=== PATIENT | female | born 1965 | race Two or more races ===

== ENCOUNTER 2018-02-01 12:47 | Emergency (ER) | payer MEDICAID ==
[~2018-02-01] VITALS: Ht 170.2 cm; Wt 81.6 kg
[2018-02-01 13:09] VITALS: BP 138/66
[2018-02-01] MEDS ORDERED: KETOROLAC TROMETH 60MG/2ML VIAL IM ONE (14:00)
== END 2018-02-01 14:30 | disposition home or self-care (01) ==
LOC: ER 12:47
DX: G89.29 Other chronic pain (principal); M54.5 Low back pain; M54.16 Radiculopathy, lumbar region
CPT/HCPCS: 96372; 99283; J1885

== ENCOUNTER 2018-12-30 21:02 | Emergency (ER) | payer MEDICAID ==
[~2018-12-30] VITALS: Ht 167.6 cm; Wt 81.6 kg
[2018-12-30 22:30] LABS: INR 0.88 (0.9-1.15); Partial Thromboplastin Time 25.5 sec (23.64-32.05); Prothrombin Time 9.6 sec (9.06-12.60)
[2018-12-30 22:32] LABS: Basophils # (auto) 0 uL; Basophils % (auto) 0.5 % (0.0-2.0); Eosinophils # (auto) 0.1 uL; Eosinophils % (auto) 0.6 % (0.0-7.0); Hematocrit 42.5 % (36.0-46.0); Hemoglobin 14.3 g/dL (12.2-16.2); Lymphocytes % (auto) 39.9 % (10.0-50.0); Mean Corpuscular Hemoglobin 29.9 pg (28.0-32.0); Mean Corpuscular Hgb Conc. 33.6 g/dL (32.0-36.0); Mean Corpuscular Volume 88.9 fL (80.0-100.0); Monocytes # (auto) 0.9 uL; Monocytes % (auto) 9.1 % (0.0-12.0); Neutrophils % (auto) 49.9 % (37.0-80.0); Nucleated Red Blood Cells % 0.1 %; Platelet Count (auto) 345 10^3/uL (140-450); Red Blood Cells 4.78 10^6/uL (4.0-5.20); Red Cell Distribution Width 14.3 % (11.8-14.3); White Blood Cell 10.1 10^3/uL (4.4-10.8)
[2018-12-30 22:35] LABS: Chloride 106 mmol/L (98-107); Potassium 3.6 mmol/L (3.5-5.1); Sodium 142 mmol/L (136-145)
[2018-12-30 22:38] LABS: Albumin 3.8 g/dL (3.4-5.0); Anion Gap 8 (5-15); BUN/Creatinine Ratio 14.7; Blood Urea Nitrogen 11 mg/dL (7-18); Calcium 8.8 mg/dL (8.5-10.1); Carbon Dioxide 28 mmol/L (21-32); GFR African American 104 mL/min; GFR Non-African American 86 mL/min; Glucose 94 mg/dL (74-106); Magnesium 2.1 mg/dL (1.6-2.6)
[2018-12-30 22:45] LABS: Alanine Aminotransferase 21 U/L (13-56); Alkaline Phosphatase 143 U/L (45-117); Aspartate Aminotransferase 15 U/L (15-37); Bilirubin, Total 0.1 mg/dL (0.2-1.0); Total Protein 7.8 g/dL (6.4-8.2)
[2018-12-30 22:58] LABS: Urine Bacteria FEW /hpf (None Seen); Urine Blood 2+ /uL (Negative); Urine Hyaline Cast FEW /lpf (0 - 2); Urine Specific Gravity 1.022 (1.001-1.035); Urine WBC 16 /hpf (0 - 5)
[2018-12-31] MEDS ORDERED: SODIUM CHLORIDE 0.9% 500 ML IV ONE (00:02)
[2018-12-31] MEDS ORDERED: cefTRIAXone 1GM/50ML D5W 50 ML IV ONE (00:15)
[2018-12-31 03:41] VITALS: BP 110/72
== END 2018-12-31 04:35 | disposition home or self-care (01) ==
LOC: ER 21:04
DX: J40 Bronchitis, not specified as acute or chronic (principal); N39.0 Urinary tract infection, site not specified; Z90.49 Acquired absence of other specified parts of digestive tract
CPT/HCPCS: 36415; 71046; 80053; 81001; 83735; 83880; 84484; 85025; 85379; 85610; 85730; 87040; 87086; 93005; 94761; 96365; 99284; J0696

== ENCOUNTER 2021-10-01 17:09 | Emergency (ER) | payer MEDICAID ==
[~2021-10-01] VITALS: Ht 170.2 cm; Wt 81.6 kg
[2021-10-01 18:23] LABS: Basophils # (auto) 0.1 10 ^3/uL (0-0.2); Basophils % (auto) 1.1 % (0.0-2.0); Eosinophils # (auto) 0.1 10 ^3/uL (0-0.8); Hematocrit 42.6 % (36.0-46.0); Hemoglobin 14.2 g/dL (12.2-16.2); Lymphocytes # (auto) 3.7 10 ^3/uL (0.4-5.4); Lymphocytes % (auto) 41.6 % (10.0-50.0); Mean Corpuscular Hemoglobin 29.8 pg (28.0-32.0); Mean Corpuscular Hgb Conc. 33.4 g/dL (32.0-36.0); Mean Corpuscular Volume 89.2 fL (80.0-100.0); Monocytes # (auto) 0.6 10 ^3/uL (0-1.3); Monocytes % (auto) 6.4 % (0.0-12.0); Neutrophils # (auto) 4.4 10 ^3/uL (1.6-8.6); Neutrophils % (auto) 49.9 % (37.0-80.0); Nucleated Red Blood Cells % 0.1 %; Red Blood Cells 4.78 10^6/uL (4.0-5.20); Red Cell Distribution Width 13.2 % (11.8-14.3); White Blood Cell 8.8 10^3/uL (4.4-10.8)
[2021-10-01 18:27] LABS: Albumin 3.9 g/dL (3.4-5.0); Calcium 9.2 mg/dL (8.5-10.1); Potassium 3.6 mmol/L (3.5-5.1)
[2021-10-01 18:33] LABS: BUN/Creatinine Ratio 20.3; Bilirubin, Total 0.2 mg/dL (0.2-1.0); Total Protein 7.4 g/dL (6.4-8.2)
[2021-10-01 19:20] VITALS: BP 118/63
== END 2021-10-01 18:14 | disposition home or self-care (01) ==
LOC: ER 17:09
DX: U09.9 Post COVID-19 condition, unspecified (principal); R06.02 Shortness of breath; Z90.49 Acquired absence of other specified parts of digestive tract; Z98.51 Tubal ligation status
CPT/HCPCS: 36415; 71045; 80053; 84484; 85025; 93005